=== PATIENT | female | born 1965 | race Caucasian/White ===

== ENCOUNTER → 2017-11-01 | Outpatient (CLI) | payer OTHER | END | disposition home or self-care (01) | LOC: LABWHC1 11:51 | PROVIDERS: ATTEND Family Medicine | DX: J11.1 Influenza due to unidentified influenza virus with other respiratory manifestations (principal) | CPT/HCPCS: 87502 ==

== ENCOUNTER → 2018-10-02 | Outpatient (CLI) | payer OTHER ==
[2018-10-02 09:32] VITALS: BP 132/70; PULSE 60; TEMP 96.8; BMI 29.2
--- NOTE | 2018-10-02 10:37 | P.HPOB ---
History of Present Illness H&P Date: 10/02/18 Chief Complaint: The patient is here for her routine gynecologic exam and mammogram. This is a 53-year-old with an LMP of approximately March 2018. She is here to establish with this office. She states this is been about 5 years since her last pelvic exam. She states her menstrual periods were regular every month until about March of this year. She has not had a menstrual period since about March. She denies any significant hot flashes. She has not had sexual intercourse for about 15 years. She is currently not seeing anybody this time. Review of Systems The patient's weight has been stable over the last year. She denies respiratory , cardiac, or G.I. problems. : occasional urinary leakage. Past Medical History Past Medical History: Hypertension (Currently not requiring medications.) Additional Past Medical History / Comment(s): Varicose veins of the leg. 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 History of Any Multi-Drug Resistant Organisms: None Reported Additional Past Surgical History / Comment(s): wisdom teeth removal. Colonoscopy on 12/01/2015. Additional Past Anesthesia/Blood Transfusion Reaction / Comment(s): never has had general anesthesia Past Psychological History: Anxiety (Mainly around the time of her divorce.) Smoking Status: Former smoker (Quit June 2018.) Past Alcohol Use History: Occasional Additional Past Alcohol Use History / Comment(s): started smoking 1978, quit for 20 years and started smoking again in approximately 2013, quit June 2018. Past Drug Use History: None Reported Additional History: She was recently . She is currently not seeing anybody at this time. 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 - Past Family History Mother Family Medical History: Osteoarthritis (OA) Father Family Medical History: GERD/Reflux Additional Family Medical History / Comment(s): hiatal hernia. Paternal grandmother had diabetes. Medications and Allergies Home Medications Medication Instructions Recorded Confirmed Type Multivitamin [Multivitamins Adult PO DAILY 10/02/18 History Gummies] Allergies Allergy/AdvReac Type Severity Reaction Status Date / Time No Known Allergies Allergy Verified 10/02/18 09:24 Exam Vital Signs Temp Pulse BP 10/02/18 09:28 96.8 F L 60 132/70 Intake and Output 10/01/18 10/02/18 10/02/18 22:59 06:59 14:59 Other: Weight 68.039 kg Height 5'0", weight 150 pounds, JESSICA 29.3. This is a well-developed well-nourished white female who is alert and oriented times 3 in no acute distress. HEENT: Within normal limits. NECK: Supple without mass or thyromegaly. CHEST AND LUNGS: Clear to auscultation. HEART: Regular rate and rhythm. BREASTS: Are without mass or discharge. AXILLARY EXAM: Negative for adenopathy. BACK: Negative for CVA tenderness. ABDOMEN: Soft, nontender, without palpable masses. PELVIC EXAM: Normal external genitalia with mild atrophy. Cervix and vagina appear normal with minimal atrophy. There is no unusual discharge. There is no evidence of prolapse. The uterus is midposition, nongravid size and nontender. There are no palpable adnexal masses or tenderness. RECTAL EXAM: rectovaginal exam is negative for mass or tenderness and is negative for occult blood. EXTREMITIES: Nontender. IMPRESSION: 1. 53-year-old perimenopausal female with six-month history of amenorrhea without significant vasomotor symptoms. 2. Normal gynecologic exam. PLAN: 1. Pap smear was performed. 2. Self breast awareness was discussed with the patient. 3. Screening mammogram will be done today. 4. Osteoporosis prevention was discussed. 5. Patient while keeping menstrual calendar and cause she's having menstrual irregularities or problems. 6. She will return in one year.
--- NOTE | 2018-10-08 09:44 | MM ---
Reason for exam: screening (asymptomatic). Last mammogram was performed 3 years and 10 months ago. Physical Findings: A clinical breast exam by your physician is recommended on an annual basis and results should be correlated with mammographic findings. MG Screening Mammo w CAD Bilateral CC and MLO view(s) were taken. Prior study comparison: November 28, 2014, bilateral MG screening mammo w CAD. August 08, 2011, bilateral digital screening mammo w/CAD. Finding: There is new architectural distortion in the outer quadrant, middle position of the right breast on CC view. New finding since November 28, 2014 and August 08, 2011. ASSESSMENT: Incomplete: need additional imaging evaluation, BI-RAD 0 RECOMMENDATION: Special view mammogram of the right breast. If lesion persists on supplemental views, image directed ultrasound is recommended. [facility] will attempt to contact patient to return for supplemental views and ultrasound if indicated.
== END ==
LOC: WWCWWP 08:56
PROVIDERS: ATTEND Obstetrics & Gynecology
DX: Z12.31 Encounter for screening mammogram for malignant neoplasm of breast (principal)
CPT/HCPCS: 77067

== ENCOUNTER → 2018-10-29 | Outpatient (CLI) | payer OTHER ==
--- NOTE | 2018-10-29 10:52 | MM ---
Reason for exam: additional evaluation requested from abnormal screening. Last mammogram was performed 1 month ago. Physical Findings: Nurse did not find any significant physical abnormalities on exam. MG Work Up Mamm w CAD RT Spot compression CC, spot compression MLO, and LM view(s) were taken of the right breast. Prior study comparison: October 02, 2018, bilateral MG screening mammo w CAD. November 28, 2014, bilateral MG screening mammo w CAD. The breast tissue is heterogeneously dense. This may lower the sensitivity of mammography. Asymmetric density far lateral and anteriorly becomes less defined on spot view and is suspected to represent focal fibroglandular tissue. Precautionary 6 month follow up recommended. These results were verbally communicated with the patient and result sheet given to the patient on 10/29/18. ASSESSMENT: Probably benign, BI-RAD 3 RECOMMENDATION: Follow-up diagnostic mammogram of the right breast in 6 months.
--- NOTE | 2018-10-30 15:12 | P.PN ---
Progress Note - Text Progress Note Date: 10/30/18 Right breast workup done on 10/29/2018 was probably benign. The recommendation was for a follow-up right diagnostic mammogram in 6 months. The results were given to the patient by the radiology department the day of the test. The order slip for a right-sided diagnostic mammogram to be done in April 2019 was mailed to the patient.
== END | disposition home or self-care (01) ==
LOC: RADMAMWWP 09:55
PROVIDERS: ATTEND Obstetrics & Gynecology
DX: R92.8 Other abnormal and inconclusive findings on diagnostic imaging of breast (principal)
CPT/HCPCS: 77065

== ENCOUNTER → 2019-05-24 | Outpatient (CLI) | payer OTHER ==
--- NOTE | 2019-05-24 15:55 | XR ---
EXAMINATION TYPE: XR foot complete bilateral DATE OF EXAM: 05/24/2019 COMPARISON: None HISTORY: Pain TECHNIQUE: Three-view left foot FINDINGS: Plantar arch is preserved. Soft tissues are unremarkable. Tiny calcification may be within the Achilles tendon region near the calcaneus. Acute fracture is not identified. Joint spaces appear preserved. IMPRESSION: 1. No acute osseous abnormality.
== END | disposition home or self-care (01) ==
LOC: RADXRMAIN 15:30
PROVIDERS: ATTEND Emergency Medicine
DX: M79.671 Pain in right foot (principal); M79.672 Pain in left foot

== ENCOUNTER 2020-04-01 18:38 | Observation (INO) | payer MEDICAID ==
[2020-04-01] MEDS ORDERED: SODIUM CHLORIDE 0.9% 1,000 ML IV STA ×2 (18:56)
--- NOTE | 2020-04-01 18:59 | ED ---
Chest Pain HPI - General Chief Complaint: Chest Pain Stated Complaint: Chest Pain Time Seen by Provider: 04/01/20 18:48 Source: patient, RN notes reviewed, old records reviewed Mode of arrival: EMS Limitations: no limitations - History of Present Illness Initial Comments: Patient is a 55-year-old female who presents the emergency department today with chief complaint of onset of substernal chest pain radiation towards her back. She reports that the symptoms lasted for 10 minutes while she was sitting in orthodox. She states that she did feel somewhat nauseous afterwards was diaphoretic at this time. She denies any previous history of coronary artery disease or scarred accenting. She states that she is a former smoker and borderline diabetic and has been noncompliant with her hypertensive medications. She states that she's had some increased acid reflux over the past week. She denies any change in urination or bowel habits. She reports that after the orthodox called EMS her pain started to subside. She rates the emergency department with no complaints of pain now. They did give Patient aspirin prior to arrival. - Related Data Home Medications Medication Instructions Recorded Confirmed Collagen Oral Tab 3 tab PO BID 04/01/20 04/01/20 Garlic 2 tab PO BID 04/01/20 04/01/20 Multivitamins, Thera [Multivitamin 1 tab PO DAILY 04/01/20 04/01/20 (formulary)] Oregano Oil Cap 1 cap PO DAILY 04/01/20 04/01/20 Vitamin C(Unknown Dose) 2 tab PO DAILY 04/01/20 04/01/20 Vitamin D3(Unknown Dose) 1 tab PO DAILY 04/01/20 04/01/20 Zinc Chewable Tab(Unknown Dose) 3 tab PO DAILY 04/01/20 04/01/20 Allergies Allergy/AdvReac Type Severity Reaction Status Date / Time No Known Allergies Allergy Verified 04/01/20 19:49 Review of Systems ROS Statement: Those systems with pertinent positive or pertinent negative responses have been documented in the HPI. ROS Other: All systems not noted in ROS Statement are negative. EKG Findings - EKG Comments: EKG Findings:: EKG performed at 5 shows sinus bradycardia, otherwise normal EKG. Ventricular rate of 59 bpm. Verbal 158 ms. QRS ration 72 ms. QT QTc is 4:30/425 ms. Past Medical History Past Medical History: Hypertension Additional Past Medical History / Comment(s): Varicose veins of the leg. 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 History of Any Multi-Drug Resistant Organisms: None Reported Additional Past Surgical History / Comment(s): wisdom teeth removal. Colonoscopy on 12/01/2015. Additional Past Anesthesia/Blood Transfusion Reaction / Comment(s): never has had general anesthesia Past Psychological History: Anxiety Smoking Status: Former smoker Past Alcohol Use History: Occasional Past Drug Use History: None Reported - Past Family History Mother Family Medical History: Osteoarthritis (OA) Father Family Medical History: GERD/Reflux Additional Family Medical History / Comment(s): hiatal hernia. Paternal grandmother had diabetes. General Exam - General Exam Comments Initial Comments: Anna 55-year-old female. No significant distress. Limitations: no limitations General appearance: alert, in no apparent distress Head exam: Present: atraumatic, normocephalic, normal inspection Eye exam: Present: normal appearance, PERRL, EOMI. Absent: scleral icterus, conjunctival injection, periorbital swelling ENT exam: Present: normal exam, mucous membranes moist Neck exam: Present: normal inspection. Absent: tenderness, meningismus, lymphadenopathy Respiratory exam: Present: normal lung sounds bilaterally. Absent: respiratory distress, wheezes, rales, rhonchi, stridor Cardiovascular Exam: Present: regular rate, normal rhythm, normal heart sounds. Absent: systolic murmur, diastolic murmur, rubs, gallop, clicks GI/Abdominal exam: Present: soft, normal bowel sounds. Absent: distended, tenderness, guarding, rebound, rigid Back exam: Present: normal inspection Neurological exam: Present: alert, oriented X3, CN II-XII intact Psychiatric exam: Present: normal affect, normal mood Course Vital Signs 04/01/20 04/01/20 18:44 19:33 Temperature 98.2 F Pulse Rate 96 57 L Respiratory 18 18 Rate Blood Pressure 159/102 133/93 O2 Sat by Pulse 96 97 Oximetry Chest Pain MDM - [facility] Patient is a pleasant 55-year-old female comes in with sudden onset of substernal chest pain or discharge. Patient reports is also diaphoretic when this occurred. Patient's initial EKG was negative. She is given aspirin by EMS. She reports her having her chest pain seems to diminish. Patient's initial troponin is negative. She does have history former smoker and comorbid is of hypertension and prediabetes. Chest x-ray is negative for any acute cardio pulmonary process. She'll be admitted at this time. Disposition Clinical Impression: Chest pain Disposition: ADMITTED IP TO THIS HOSP Condition: Stable Is patient prescribed a controlled substance at d/c from ED?: No Referrals: Kenyon Jung MD [Primary Care Provider] - 1-2 days Time of Disposition: 20:03
[2020-04-01 19:12] LABS: Basophils % (A) 1 %; Eosinophils # (A) 0.1 k/uL (0-0.7); Eosinophils % (A) 2 %; HCT 41.9 % (34.0-46.0); HGB 14.3 gm/dL (11.4-16.0); Lymphocytes # (A) 2.3 k/uL (1.0-4.8); Lymphocytes % (A) 39 %; Mean Platelet Volume 7.5; Monocytes # (A) 0.3 k/uL (0-1.0); Monocytes % (A) 6 %; Neutrophils % (A) 51 %; Platelet Count 239 k/uL (150-450); RBC 4.61 m/uL (3.80-5.40); RDW 13.2 % (11.5-15.5); WBC 5.9 k/uL (3.8-10.6)
--- NOTE | 2020-04-01 19:16 | XR ---
EXAMINATION TYPE: XR chest 2V DATE OF EXAM: 04/01/2020 COMPARISON: NONE HISTORY: Shortness of breath TECHNIQUE: Frontal and lateral views of the chest are obtained. FINDINGS: Scattered senescent parenchymal changes noted. No evidence for infiltrate. No evidence for atelectasis. Heart size is stable. Mediastinal structures are stable and grossly unremarkable. No evidence for hilar prominence. Degenerative changes dorsal spine. IMPRESSION: 1. No evidence for acute pulmonary disease.
[2020-04-01 19:17] LABS: INR 0.9 (<1.2); Partial Thromboplastin Time 23.7 sec (22.0-30.0); Prothrombin Time 9.6 sec (9.0-12.0)
[2020-04-01 19:21] LABS: ALT 64 U/L (4-34); AST 42 U/L (14-36); African American GFR (CKD) >90 (>60 ml/min/1.73 sqM); Albumin 4.6 g/dL (3.5-5.0); Alkaline Phosphatase 107 U/L (38-126); Amylase 57 U/L (30-110); Anion Gap 8 mmol/L; Blood Urea Nitrogen 21 mg/dL (7-17); Calcium 9.5 mg/dL (8.4-10.2); Carbon Dioxide 21 mmol/L (22-30); Chloride 109 mmol/L (98-107); Glucose 108 mg/dL (74-99); Magnesium 2.3 mg/dL (1.6-2.3); Non-African American GFR(CKD) 89 (>60 ml/min/1.73 sqM); Potassium 4.3 mmol/L (3.5-5.1); Sodium 138 mmol/L (137-145); Total Bilirubin 0.3 mg/dL (0.2-1.3); Total Protein 7.9 g/dL (6.3-8.2)
[2020-04-01] MEDS ORDERED: NITROGLYCERIN SL TABS 0.4 MG TAB SUBLINGUAL PRN (20:03)
[2020-04-02 08:59] LABS: Triglycerides 145 mg/dL (<150)
[2020-04-02] MEDS ORDERED: ASPIRIN 325 MG TAB PO SCH (09:00)
[2020-04-02 09:01] VITALS: BP 142/87; TEMP 97.7
[2020-04-02 09:06] LABS: Cholesterol 244 mg/dL (<200); HDL Cholesterol 63 mg/dL (40-60); LDL Cholesterol,Calculated 152 mg/dL (0-99)
--- NOTE | 2020-04-02 12:00 | ECHOF ---
Referral Reason:chest pain MEASUREMENTS -------- HEIGHT: 154.9 cm WEIGHT: 73.5 kg BP: IVSd: 1.2 cm (0.6 - 1.1) LVIDd: 3.2 cm (3.9 - 5.3) LVPWd: 1.1 cm (0.6 - 1.1) IVSs: 1.6 cm LVIDs: 1.8 cm LVPWs: 2.0 cm LAESV Index (A-L): 26.00 ml/m Ao Diam: 2.6 cm (2.0 - 3.7) AV Cusp: 1.9 cm (1.5 - 2.6) LA Diam: 2.7 cm (2.7 - 3.8) MV EXCURSION: 10.412 mm (> 18.000) MV EF SLOPE: 118 mm/s (70 - 150) EPSS: 1.1 cm MV E Ryland: 1.09 m/s MV DecT: 224 ms MV A Ryland: 0.68 m/s MV E/A Ratio: 1.62 RAP: 5.00 mmHg RVSP: 11.77 mmHg FINDINGS -------- Sinus rhythm. This was a technically good study. The left ventricular size is normal. There is mild concentric left ventricular hypertrophy. Overa ll left ventricular systolic function is normal with, an EF between 55 - 60 %. Normal LAP Grade 1 D iastolic Dysfunction. The right ventricle is normal in size. The left atrial size is normal. Normal LA size by volume 22+/-6 ml/m2. The right atrial size is normal. Interatrial and interventricular septum intact. The aortic valve is trileaflet and appears structurally normal. The mitral valve is normal. There is trace mitral regurgitation. The tricuspid valve appears structurally normal. Trace tricuspid regurgitation present. Right silvia tricular systolic pressure is normal at < 35 mmHg. There is no pulmonic regurgitation present. The aortic root size is normal. Normal inferior vena cava with normal inspiratory collapse consistent with estimated right atrial pre ssure of 5 mmHg. There is no pericardial effusion. CONCLUSIONS -------- 1. Sinus rhythm. 2. This was a technically good study. 3. The left ventricular size is normal. 4. There is mild concentric left ventricular hypertrophy. 5. Overall left ventricular systolic function is normal with, an EF between 55 - 60 %. 6. Normal LAP Grade 1 Diastolic Dysfunction. 7. The right ventricle is normal in size. 8. The left atrial size is normal. 9. Normal LA size by volume 22+/-6 ml/m2. 10. The right atrial size is normal. 11. Interatrial and interventricular septum intact. 12. The aortic valve is trileaflet and appears structurally normal. 13. The mitral valve is normal. 14. There is trace mitral regurgitation. 15. The tricuspid valve appears structurally normal. 16. Trace tricuspid regurgitation present. 17. Right ventricular systolic pressure is normal at < 35 mmHg. 18. There is no pulmonic regurgitation present. 19. The aortic root size is normal. 20. Normal inferior vena cava with normal inspiratory collapse consistent with estimated right atrial pressure of 5 mmHg. 21. There is no pericardial effusion. BENEFITS PROCESSOR: Katelynn Pires RDCS
--- NOTE | 2020-04-02 12:31 | CONS ---
CONSULTATION CHIEF COMPLAINT: Chest pain. Poonam is a 55-year-old lady with no significant past medical history who presented to hospital complaining of chest pain. It is sharp, mild intensity, precordial without definite radiation to neck, arm or back. Unassociated with diaphoresis. There is no history of leg edema, PND, or orthopnea. At the time of my evaluation this morning, she appears comfortable at rest and is free of chest pain. EKG does not reveal any ischemic changes. Three sets of cardiac enzymes are negative. Lipid profile shows that the LDL cholesterol is 150. Her ferreira virus is negative. PAST MEDICAL HISTORY: Significant for questionable history of hypertension. There is no history of dyslipidemia, diabetes. MEDICATIONS: At home are none. ALLERGIES: None. FAMILY HISTORY: Significant for premature coronary artery disease. SOCIAL HISTORY: Denies current smoking. She drinks 2 glasses of wine every day. REVIEW OF SYSTEMS: HEENT: Unremarkable. CARDIAC: As described above. RESPIRATORY: Negative. GI: Negative. ALLERGY/IMMUNOLOGY: Negative. SKIN: Negative. MUSCULOSKELETAL: Negative. ENDOCRINE: Negative. DERM: Negative. CONSTITUTIONAL: Negative. ONCOLOGICAL: Negative. LIFE SCIENCES INSTRUCTOR: Negative. PHYSICAL EXAM: Comfortable at rest vital signs are stable. There is no jugular venous distention. Carotid upstroke is normal. There is no bruit. Chest exam reveals good air entry bilaterally. Heart exam reveals first and second heart sounds. No gallop. No murmur. No rub. Abdomen is soft, nontender. Exam of extremities did not reveal any edema. Peripheral pulses are felt. LIFE SCIENCES INSTRUCTOR exam did not reveal focal neurological deficits. ASSESSMENT: 1. Precordial chest pain. PLAN: Patient's chest discomfort is sharp, atypical. I am going to obtain a stress echo on her to rule out ischemia and if there is no ischemia, we will discharge her home. If it is abnormal, will perform cardiac catheterization on her. MMODL / IJN: [id number] /
[2020-04-02 12:51] VITALS: PULSE 55; RESP 16
--- NOTE | 2020-04-02 14:32 | ECHOS ---
STRESS ECHOCARDIOGRAM LUMASON: Vial INDICATIONS: Chest pain. MEDICATIONS: BASELINE HEART RATE: 53 BASELINE BLOOD PRESSURE: 146/90 MAXIMUM HEART RATE: 124 MAXIMUM BLOOD PRESSURE: 184/82 85% MPHR: 139 100% MPHR: 163 METS: 4 MAXIMUM STAGE REACHED: TOTAL EXERCISE TIME: 9:30 CLINICAL INFORMATION: Baseline EKG revealed normal sinus rhythm without significant ST-T changes. Patient walked on standard Alvaro protocol for 9 minutes 30 seconds, achieved a maximal heart rate of 142 beats per minute, developed fatigue and shortness of breath. Stress test was stopped because of fatigue and shortness of breath. The heart rate came down somewhat quickly. Patient did not have angina or arrhythmia. EKG did not reveal any ST-segment changes to indicate ischemia. There was a lot of baseline artifact. By EKG criteria, this is a negative stress test with good exercise capacity. Baseline echo images revealed normal wall motion and wall thickening of all segments. At peak exercise by the time images were obtained, heart rate was lower, but there is no evidence to suggest any ischemia. There was good augmentation of left ventricular wall motion and wall thickening of all segments suggesting that there is no evidence of stress-induced ischemia on this study. FINAL IMPRESSION: 1. Fair to good exercise capacity with a negative stress test by EKG criteria. 2. Normal stress echocardiogram. Patient's heart rate came down somewhat quickly after the exercise, but there is no evidence to suggest any ischemia. Good augmentation of left ventricle contractility was noted. MMNELLIEL / CHUNGN: [id number] /
--- NOTE | 2020-04-02 17:14 | P.HPIM ---
History of Present Illness H&P Date: 04/02/20 Chief Complaint: Chest pain, shortness of breath History and Physical and Discharge Summary This is a 55-year-old pleasant female with history of hypertension, anxiety, former nicotine dependence, borderline diabetic and multiple other medical issues. Transported to the ER via EMS with substernal chest pain radiating to back accompanied by shortness of breath, nausea , diaphoresis ,while sitting in zoroastrian. Reports she changed jobs, lost her insurance and therefore had quit taking her blood pressure medications for some time. Reports she drinks 2 glasses of wine nightly and has gained a few pounds and is menopausal. Also complains of increased acid reflux over the last week, especially at night. Troponins negative 3. EKG reported sinus bradycardia /sinus rhythm. Blood pressure on arrival 159/102 , heart rate 96 , respiratory rate 18 maintaining O2 sats in the 90s on room air. Afebrile, normal WBC. Denies any syncope. Denies any cough, congestion or fevers or chills. Coronavirus not detected. Hematology unremarkable. D-dimer within normal limits. INR 0.9. BUN 21, cr eatinine 0.75, glucose 108, AST, ALT mildly elevated. Cholesterol 244, LDL 152, HDL 63. Chest x-ray nonacute. Echo cardiogram reporting normal LV function, EF 55-60%. Cardiology consulted. Review of Systems ROS Statement: Those systems with pertinent positive or pertinent negative responses have been documented in the HPI. ROS Other: All systems not noted in ROS Statement are negative. Past Medical History Past Medical History: Hypertension Additional Past Medical History / Comment(s): Varicose veins of the leg. 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 History of Any Multi-Drug Resistant Organisms: None Reported Additional Past Surgical History / Comment(s): wisdom teeth removal. Colonoscopy on 12/01/2015. Additional Past Anesthesia/Blood Transfusion Reaction / Comment(s): never has had general anesthesia Smoking Status: Former smoker - Past Family History Mother Family Medical History: Osteoarthritis (OA) Father Family Medical History: GERD/Reflux Additional Family Medical History / Comment(s): hiatal hernia. Paternal grandm other had diabetes. Medications and Allergies Home Medications Medication Instructions Recorded Confirmed Type Collagen Oral Tab 3 tab PO BID 04/01/20 04/01/20 History Garlic 2 tab PO BID 04/01/20 04/01/20 History Multivitamins, Thera [Multivitamin 1 tab PO DAILY 04/01/20 04/01/20 History (formulary)] Oregano Oil Cap 1 cap PO DAILY 04/01/20 04/01/20 History Vitamin C(Unknown Dose) 2 tab PO DAILY 04/01/20 04/01/20 History Vitamin D3(Unknown Dose) 1 tab PO DAILY 04/01/20 04/01/20 History Zinc Chewable Tab(Unknown Dose) 3 tab PO DAILY 04/01/20 04/01/20 History Albuterol Sulfate [Ventolin HFA] 2 puff INHALATION Q4H PRN #1 04/02/20 Rx inhaler Atenolol [Tenormin] 12.5 mg PO BID #60 dose 04/02/20 Rx Atorvastatin Calcium [Lipitor] 10 mg PO HS #30 tab 04/02/20 Rx Allergies Allergy/AdvReac Type Severity Reaction Status Date / Time No Known Allergies Allergy Verified 04/01/20 19:49 Physical Exam Vitals: Vital Signs Temp Pulse Pulse Resp BP BP Pulse Ox 04/02/20 12:00 97.7 F 55 L 16 142/87 97 04/02/20 08:00 97.7 F 58 L 18 142/87 99 04/02/20 04:00 98.2 F 65 18 124/65 98 04/01/20 22:53 62 18 142/78 97 04/01/20 20:54 98.1 F 58 L 18 157/95 98 04/01/20 20:32 98 F 61 18 140/83 98 04/01/20 19:33 57 L 18 133/93 97 04/01/20 18:44 98.2 F 96 18 159/102 96 Intake and Output 04/02/20 04/02/20 04/02/20 06:59 14:59 22:59 Other: # Voids 1 1 Weight 73.9 kg 73.9 kg PHYSICAL EXAM: VITAL SIGNS: As above GENERAL: Sitting up in bed, no acute distress HEENT: Conjunctivae normal. eyes normal. NECK: No JVD. No thyroid enlargement. No LNs CARDIOVASCULAR: S1, S2 regular.. No murmur RESPIRATION: Breath sounds diminished in the bases. No rhonchi or crackles. No bronchial breathing. ABDOMEN: Soft, nontender . No guarding. no masses palpable. No ascites, No hepatosplenomegaly.Bowel sounds heard. LEGS: No edema. no swelling PSYCHIATRY: Alert and oriented X3, mood and affect normal. NERVOUS SYSTEM: Cranial N 2-12 grossly normal. Moves all 4 limbs. No focal deficits. Strength and sensation grossly intact.. Skin:no rash Lymphatic system. No LN neck axilla. Results CBC & Chem 7: 04/01/20 18:55 04/01/20 18:55 Labs: Abnormal Lab Results - Last 24 Hours (Table) 04/01/20 04/02/20 Range/Units 18:55 07:06 Chloride 109 H (98-107) mmol/L Carbon Dioxide 21 L (22-30) mmol/L BUN 21 H (7-17) mg/dL Glucose 108 H (74-99) mg/dL AST 42 H (14-36) U/L ALT 64 H (4-34) U/L Cholesterol 244 H (<200) mg/dL LDL Cholesterol, Calc 152 H (0-99) mg/dL HDL Cholesterol 63 H (40-60) mg/dL Thrombosis Risk Factor Assmnt - Choose All That Apply Any of the Below Risk Factors Present?: Yes Each Factor Represents 1 point: Age 41-60 years, Obesity (BMI >25) Thrombosis Risk Factor Assessment Total Risk Factor Score: 2 Thrombosis Risk Factor Assessment Level: Low Risk Assessment and Plan Assessment: Acute chest pain, ruling out acute coronary syndrome Hypertension. Patient had quit taking her antihypertensives Mild dehydration Gastroesophageal reflux disease Mildly elevated LFTs, possibly gallbladder disease with further workup outpatient Hypercholesterolemia Hyperlipidemia Obesity, BMI 30.8 Menopausal Former nicotine dependence Alcohol use Coronavirus not detected Plan: Continue on current medication regime ,monitoring and symptomatic treatment. Evaluated by cardiology, scheduled for stress echo. TSH/free T4, hemoglobin A1c ordered. Patient will be discharged home in a stable condition with guarded prognosis, pending stress test, final DC recommendations and clearance from cardiology. Further workup of gallbladder outpatient.Statin, atenolol, Prilosec, Ventolin HFA at DC. Decrease wine consumption reinforced. The impression and plan of care has been dictated as directed. : I performed a history and examination of this patient, discussed the same with the dictator. I agree with the dictator's note ,documented as a scribe. Any additional findings or plans will be noted.
[2020-04-03] MEDS ORDERED: ZINC SULFATE 220 MG CAP PO SCH (09:00)
[2020-04-03] MEDS ORDERED: MULTIVITAMINS, THERA 1 EACH TAB PO SCH (09:00)
== END 2020-04-02 16:42 | disposition home or self-care (01) ==
LOC: EC 18:38 → 3SCARD 20:13
PROVIDERS: ADMIT Family Medicine; ATTEND Family Medicine
DX: R07.89 Other chest pain (principal); R11.0 Nausea; R61 Generalized hyperhidrosis; R07.2 Precordial pain; R06.02 Shortness of breath; I10 Essential (primary) hypertension; T46.5X6A Underdosing of other antihypertensive drugs, initial encounter; Z91.120 Patient's intentional underdosing of medication regimen due to financial hardship; E86.0 Dehydration; K21.9 Gastro-esophageal reflux disease without esophagitis; R79.89 Other specified abnormal findings of blood chemistry; E78.00 Pure hypercholesterolemia, unspecified; E78.5 Hyperlipidemia, unspecified; Z78.0 Asymptomatic menopausal state; E66.9 Obesity, unspecified; Z68.30 Body mass index [BMI] 30.0-30.9, adult; R73.03 Prediabetes; F41.9 Anxiety disorder, unspecified; R74.0 Nonspecific elevation of levels of transaminase and lactic acid dehydrogenase [LDH]; Z79.899 Other long term (current) drug therapy; Z87.891 Personal history of nicotine dependence; I83.90 Asymptomatic varicose veins of unspecified lower extremity; Z91.19 Patient's noncompliance with other medical treatment and regimen; Z20.828 Contact with and (suspected) exposure to other viral communicable diseases; Z82.61 Family history of arthritis; Z83.3 Family history of diabetes mellitus; Z83.79 Family history of other diseases of the digestive system; Z82.49 Family history of ischemic heart disease and other diseases of the circulatory system
CPT/HCPCS: 93005 ×2; 96360; 99285; 36415; 93306; 93351; 85379; 80061; 80053; 82150; 83690; 83735; 84484 ×2; 85025; 85610; 85730; 87635; 71046; G0378 ×2

== ENCOUNTER → 2020-08-18 | Outpatient (CLI) | payer MEDICAID ==
[2020-08-18 14:09] VITALS: BP 133/66; PULSE 50; RESP 16; TEMP 98.2
--- NOTE | 2020-08-18 15:19 | P.HPOB ---
History of Present Illness H&P Date: 08/18/20 Chief Complaint: The patient is here for her routine gynecologic exam. This is a 55-year-old with an LMP of early 2018. She has gone more than one year without any vaginal bleeding. She denies any significant hot flashes but does notice some irritability and had gained weight which she believes may have been related to the menopausal change. She has lost much of the weight with diet and exercise. She is without gynecologic complaints. Review of Systems She had gained about 12 pounds which she attributed to the menopausal change. With diet, exercise and Adipex she has lost about 14 pounds. She denies respiratory, cardiac, or GI problems. Past Medical History Past Medical History: Hypertension, Sleep Apnea/CPAP/BIPAP Additional Past Medical History / Comment(s): Varicose veins of the leg. 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 History of Any Multi-Drug Resistant Organisms: None Reported Additional Past Surgical History / Comment(s): wisdom teeth removal. Colonoscopy on 12/01/2015. Additional Past Anesthesia/Blood Transfusion Reaction / Comment(s): never has had general anesthesia Past Psychological History: Anxiety Smoking Status: Former smoker Past Alcohol Use History: Daily (About 8 ounces of wine per day.) Additional Past Alcohol Use History / Comment(s): started smoking 1978, quit for 20 years and started smoking again in approximately 2013, quit June 2018. Past Drug Use History: None Reported Additional History: She is . She has been with her boyfriend since 2019 and does not live with him. She has not been sexually active with him. She works in home care. She has taken up pickleball. - Past Family History Mother Family Medical History: Osteoarthritis (OA) Father Family Medical History: GERD/Reflux Additional Family Medical History / Comment(s): hiatal hernia. Paternal grandm other had diabetes. Medications and Allergies Home Medications Medication Instructions Recorded Confirmed Type Collagen Oral Tab 3 tab PO BID 04/01/20 08/18/20 History Vitamin C(Unknown Dose) 2 tab PO DAILY 04/01/20 08/18/20 History Zinc Chewable Tab(Unknown Dose) 3 tab PO DAILY 04/01/20 08/18/20 History Nebivolol HCl [Bystolic] 5 mg PO DAILY 08/18/20 08/18/20 History Phentermine HCl [Adipex-P] 37.5 mg PO [id number] 08/18/20 08/18/20 History Allergies Allergy/AdvReac Type Severity Reaction Status Date / Time No Known Allergies Allergy Verified 04/01/20 19:49 Exam Vital Signs Temp Pulse Resp BP Pulse Ox 08/18/20 14:01 98.2 F 50 L 16 133/66 96 Intake and Output 08/18/20 08/18/20 08/18/20 06:59 14:59 22:59 Other: Weight 67.132 kg Height 5 feet 1 inch, weight 148 pounds, BMI 28.0. This is a well-developed well-nourished white female who is alert and oriented times 3 in no acute distress. HEENT: Within normal limits. NECK: Supple without mass or thyromegaly. CHEST AND LUNGS: Clear to auscultation. HEART: Regular rate and rhythm. BREASTS: Are without mass or discharge. AXILLARY EXAM: Negative for adenopathy. BACK: Negative for CVA tenderness. ABDOMEN: Soft, nontender, without palpable masses. PELVIC EXAM: Normal external genitalia with minimal atrophy. Cervix and vagina appear normal is minimal atrophy. There is no unusual discharge. There is no evidence of prolapse. The uterus is midposition, nongravid size and nontender. There are no palpable adnexal masses or tenderness. RECTAL EXAM: Rectovaginal exam is negative for mass or tenderness and is negative for occult blood. EXTREMITIES: Nontender. IMPRESSION: 1. 55-year-old menopausal female with normal gynecologic exam. 2. Previous abnormal mammogram and she did not follow-up with the right breast mammogram as recommended. PLAN: 1. Pap smear was deferred since her last one was normal less than 2 years ago on 10/02/2018. 2. Self breast awareness was discussed with the patient. 3. Bilateral diagnostic mammogram is due and the order slip was given to the patient for this. 4. Osteoporosis prevention was discussed. I have stressed the importance of adequate calcium, vitamin D and regular exercise. Recommended amounts of calcium and vitamin D were also discussed. 5. Weight control was discussed. I have stressed the importance of good nutrition, regular exercise and adequate fiber. It will be important that she could have its even after stopping the Adipex. 6. She was advised to return in one year for her annual well woman exam.
== END | disposition home or self-care (01) ==
LOC: WWCWWP 13:52
PROVIDERS: ATTEND Obstetrics & Gynecology
DX: Z53.9 Procedure and treatment not carried out, unspecified reason (principal)

== ENCOUNTER → 2020-09-07 | Outpatient (CLI) | payer MEDICAID ==
--- NOTE | 2020-09-08 11:46 | MM ---
Reason for exam: additional evaluation requested from prior study. Last mammogram was performed 1 year and 10 months ago. History: Patient is postmenopausal. Physical Findings: Nurse did not find any significant physical abnormalities on exam. MG 3D Diag Mammo W/Cad JANES Bilateral CC and MLO view(s) were taken. Prior study comparison: October 29, 2018, right breast MG work up mamm w CAD RT. October 02, 2018, bilateral MG screening mammo w CAD. The breast tissue is heterogeneously dense. This may lower the sensitivity of mammography. 5mm circumscribed isodense nodularity subareolar left MLO view likely seen now because of 3D imaging. 6 month follow up recommended. These results were verbally communicated with the patient and result sheet given to the patient on 09/07/20. ASSESSMENT: Probably benign, BI-RAD 3 RECOMMENDATION: Follow-up diagnostic mammogram of the left breast in 6 months.
== END | disposition home or self-care (01) ==
LOC: RADMAMWWP 13:06
PROVIDERS: ATTEND Obstetrics & Gynecology
DX: R92.8 Other abnormal and inconclusive findings on diagnostic imaging of breast (principal)
CPT/HCPCS: 77062; 77066

== ENCOUNTER → 2022-04-26 | Outpatient (CLI) | payer MEDICAID ==
[2022-04-26 11:16] VITALS: BP 125/78; PULSE 60; RESP 17; TEMP 98.6
--- NOTE | 2022-04-26 12:03 | P.HPOB ---
History of Present Illness H&P Date: 04/26/22 Chief Complaint: The patient is here for her routine gynecologic exam and ma mmogram. This is a 57-year-old with an LMP of 2019. She is without gynecologic complaints and denies any postmenopausal bleeding. Her last screening mammogram on 08/18/2020 did require a left breast workup which was probably benign. A 6 month diagnostic left mammogram was recommended and the patient did not have this done. Review of Systems The patient has lost 5 pounds over the last year. The weight loss was intentional with dietary changes. She denies respiratory, cardiac, or G.I. problems. Past Medical History Past Medical History: Hyperlipidemia, Hypertension, Sleep Apnea/CPAP/BIPAP Additional Past Medical History / Comment(s): Varicose veins of the leg. 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 History of Any Multi-Drug Resistant Organisms: None Reported Additional Past Surgical History / Comment(s): wisdom teeth removal. Colonoscopy on 12/01/2015. Additional Past Anesthesia/Blood Transfusion Reaction / Comment(s): never has had general anesthesia Past Psychological History: Anxiety Smoking Status: Current some day smoker (About 1 pack of cigarettes per month.) Past Alcohol Use History: Daily Additional Past Alcohol Use History / Comment(s): started smoking 1978, quit for 20 years and started smoking again in approximately 2013, quit June 2018, but started again infrequently. Past Drug Use History: None Reported Additional History: She is . She has been with her boyfriend since 2019 but does not live with him and is not sexually active with him. She has moved back in with her parents because of her mother's health issues. - Past Family History Mother Family Medical History: Osteoarthritis (OA) Additional Family Medical History / Comment(s): Brain tumor. Father Family Medical History: GERD/Reflux Additional Family Medical History / Comment(s): hiatal hernia. Paternal grandmother had diabetes. Medications and Allergies Home Medications Medication Instructions Recorded Confirmed Type Collagen Oral Tab 3 tab PO BID 04/01/20 04/26/22 History Vitamin C(Unknown Dose) 2 tab PO DAILY 04/01/20 04/26/22 History Nebivolol HCl [Bystolic] 5 mg PO DAILY 08/18/20 04/26/22 History Atorvastatin [Lipitor] 10 mg PO DAILY 04/26/22 04/26/22 History Allergies Allergy/AdvReac Type Severity Reaction Status Date / Time No Known Allergies Allergy Verified 04/26/22 11:10 Exam Vital Signs Temp Pulse Resp BP Pulse Ox 04/26/22 11:13 98.6 F 60 17 125/78 96 Intake and Output 04/25/22 04/26/22 04/26/22 22:59 06:59 14:59 Other: Weight 64.864 kg Height 5 foot 1 inch, weight 143 pounds, BMI 27.0. This is a well-developed well-nourished white female who is alert and oriented times 3 in no acute distress. HEENT: Within normal limits. NECK: Supple without mass or thyromegaly. CHEST AND LUNGS: Clear to auscultation. HEART: Regular rate and rhythm. BREASTS: Are without mass or discharge. AXILLARY EXAM: Negative for adenopathy. BACK: Negative for CVA tenderness. ABDOMEN: Soft, nontender, without palpable masses. PELVIC EXAM: Normal external genitalia with mild atrophy. Cervix and vagina appear normal mild atrophy. There is no unusual discharge. There is no evidence of prolapse. The uterus is midposition, nongravid size and nontender. There are no palpable adnexal masses or tenderness. RECTAL EXAM: Rectovaginal exam is negative for mass or tenderness and is negative for occult blood. EXTREMITIES: Nontender. IMPRESSION: 1. 57-year-old menopausal female with normal gynecologic exam. 2. Previous abnormal screening mammogram which did require a left breast workup. 6 month follow-up was not done by the patient. PLAN: 1. Pap smear cotest was performed. 2. Self breast awareness was discussed with the patient. We have also discussed symptoms associated with inflammatory breast cancer. 3. Bilateral diagnostic mammogram will be done today. 4. Osteoporosis prevention was discussed. I have stressed the importance of adequate calcium, vitamin D and regular exercise. Recommended amounts of calcium and vitamin D were also discussed. 5. She has completed her Covid vaccination series and did receive a booster. 6. She was advised to return in one year for her annual well woman exam.
--- NOTE | 2022-04-26 13:31 | MM ---
Reason for Exam: Follow-up at short interval from prior study. Last mammogram was performed 1 year(s) and 8 month(s) ago. Patient History: Menarche at age 10. First Full-Term at age 26. Postmenopausal. Risk Values: Karen 5 year model risk: 1.5%. NCI Lifetime model risk: 8.3%. Prior Study Comparison: 03/16/2006 Screening Mammogram, [facility]. 08/08/2011 Bilateral Screening Mammogram, [facility]. 11/28/2014 Bilateral Screening Mammogram, [facility]. 10/02/2018 Bilateral Screening Mammogram, [facility]. 10/29/2018 Right Diagnostic Mammogram, [facility]. 09/07/2020 Bilateral Diagnostic Mammogram, [facility]. Tissue Density: The breast tissue is heterogeneously dense. This may lower the sensitivity of mammography. Findings: Analyzed By CAD. The previous subareolar nodularity on the left MLO view has not persistent. No significant change from prior exams. Overall Assessment: Negative, BI-RAD 1 Management: Screening Mammogram of both breasts in 1 year. 1. Patient should continue monthly self breast exams. 2. This exam should not preclude additional follow-up of suspicious palpable abnormalities. Results were given to the patient verbally at the time of exam. Electronically signed and approved by: Coty Avelar M.D. Radiologist
== END | disposition home or self-care (01) ==
LOC: WWCWWP 10:46
PROVIDERS: ATTEND Obstetrics & Gynecology
DX: R92.8 Other abnormal and inconclusive findings on diagnostic imaging of breast (principal)
CPT/HCPCS: 77062; 77066

== ENCOUNTER 2024-02-01 09:28 | Emergency (ER) | payer MEDICAID ==
[2024-02-01 09:44] VITALS: TEMP 98.7
--- NOTE | 2024-02-01 09:49 | ED ---
General Adult HPI - General Chief complaint: Chest Pain Stated complaint: chest pain Time Seen by Provider: 02/01/24 09:32 Source: patient Mode of arrival: ambulatory Limitations: no limitations - History of Present Illness Initial comments: Dictation was produced using [employer] dictation software. please excuse any grammatical, word or spelling errors. Chief Complaint: 58-year-old female no significant comorbidities presents to the ER for chest pain History of Present Illness: Patient 58-year-old female she has past medical history of high cholesterol controlled with oral medications. For last couple hours she has developed a pressure in her chest that radiated to her left jaw. She did report some diaphoresis and nausea. She has no history of cardiac disease. No family history of heart attacks. 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 States that her symptoms mostly resolved except for mild pressure in her chest. The ROS documented in this emergency department record has been reviewed and confirmed by me. Those systems with pertinent positive or negative responses have been documented in the HPI. All other systems are other negative and/or noncontributory. - Related Data Home Medications Medication Instructions Recorded Confirmed Nebivolol HCl [Bystolic] 5 mg PO DAILY 08/18/20 04/26/22 Atorvastatin [Lipitor] 10 mg PO DAILY 04/26/22 04/26/22 Allergies Allergy/AdvReac Type Severity Reaction Status Date / Time No Known Allergies Allergy Verified 02/01/24 12:00 Review of Systems ROS Statement: Those systems with pertinent positive or pertinent negative responses have been documented in the HPI. ROS Other: All systems not noted in ROS Statement are negative. Past Medical History Past Medical History: Hyperlipidemia, Hypertension, Sleep Apnea/CPAP/BIPAP Additional Past Medical History / Comment(s): Varicose veins of the leg. 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 History of Any Multi-Drug Resistant Organisms: None Reported Additional Past Surgical History / Comment(s): wisdom teeth removal. Colonoscopy on 12/01/2015. Additional Past Anesthesia/Blood Transfusion Reaction / Comment(s): never has had general anesthesia Past Psychological History: Anxiety Smoking Status: Current some day smoker Past Alcohol Use History: Daily Past Drug Use History: None Reported - Past Family History Mother Family Medical History: Osteoarthritis (OA) Additional Family Medical History / Comment(s): Brain tumor. Father Family Medical History: GERD/Reflux Additional Family Medical History / Comment(s): hiatal hernia. Paternal grandmother had diabetes. General Exam - General Exam Comments Initial Comments: PHYSICAL EXAM: General Impression: Alert and oriented x3, not in acute distress HEENT: Normocephalic atraumatic, extra-ocular movements intact, pupils equal and reactive to light bilaterally, mucous membranes moist. Cardiovascular: Heart regular rate and rhythm Chest: Able to complete full sentences, no retractions, no tachypnea Abdomen: abdomen soft, non-tender, non-distended, no organomegaly Musculoskeletal: Pulses present and equal in all extremities, no peripheral edema Motor: no focal deficits noted Neurological: CN II-XII grossly intact, no focal motor or sensory deficits noted Skin: Intact with no visualized rashes Psych: Normal affect and mood Limitations: no limitations Course Vital Signs 02/01/24 02/01/24 09:29 10:08 Temperature 98.7 F Pulse Rate 59 L 49 L Respiratory 16 18 Rate Blood Pressure 181/92 147/88 O2 Sat by Pulse 98 98 Oximetry EKG Findings - EKG Comments: EKG Findings:: My EKG interpretation: Ventricular rate 49, sinus bradycardia,. 182, QRS 76, QTc 417. No MA prolongation, no QTC prolongation, no ST or T-wave changes noted. . Overall, this EKG is unremarkable Medical Decision Making - Medical Decision Making Was pt. sent in by a medical professional or institution (, PA, SYSTEMS SUPPORT SPECIALIST, urgent care, hospital, or [place] [facility] facility...) When possible be specific @ -No Did you speak to anyone other than the patient for history (EMS, parent, family, police, friend...)? What history was obtained from this source @ -No Did you review nursing and triage notes (agree or disagree)? Why? @ -I reviewed and agree with nursing and triage notes Were old charts reviewed (outside hosp., previous admission, EMS record, old EKG, old radiological studies, urgent care reports/EKG's, [place] [facility] facility records)? Report findings @ -No old charts were reviewed Differential Diagnosis (chest pain, altered mental status, abdominal pain women, abdominal pain men, vaginal bleeding, musculoskeletal, weakness, fever, dyspnea, syncope, headache, dizziness, GI bleed, back pain, seizure, CVA, palpatations, mental health)? @ -Differential Chest Pain: Stable Angina, Unstable Angina, STEMI, NSTEMI Aortic Dissection, Pneumothorax, Musculoskeletal, Esophageal Spasm GERD, Cholecystitis, Pancreatitis, Zoster, this is not meant to be an all-inclusive list. EKG interpreted by me (3pts min.). @ -See above X-rays interpreted by me (1pt min.). @ -Chest x-ray is nonacute CT interpreted by me (1pt min.). @ -None done U/S interpreted by me (1pt. min.). @ -None done What testing was considered but not performed or refused? (CT, X-rays, U/S, labs)? Why? @ -None What meds were considered but not given or refused? Why? @ -None Did you discuss the management of the patient with other professionals (professionals i.e. , PA, SYSTEMS SUPPORT SPECIALIST, lab, RT, psych nurse, high school social science teacher, media production manager, teacher, trust officer, window caser)? Give summary @ -No Was smoking cessation discussed for >3mins.? @ -No Was critical care preformed (if so, how long)? @ -No Were there social determinants of health that impacted care today? How? (Homelessness, low income, unemployed, alcoholism, drug addiction, transportation, low edu. Level, literacy, decrease access to med. care, group home, re hab)? @ -No Was there de-escalation of care discussed even if they declined (Discuss DNR or withdrawal of care, Hospice)? DNR status @ -No What co-morbidities impacted this encounter? (DM, HTN, Smoking, COPD, CAD, Cancer, CVA, ARF, Chemo, Hep., AIDS, mental health diagnosis, sleep apnea, morbid obesity)? @ -None Was patient admitted / discharged? Hospital course, mention meds given and route, prescriptions, significant lab abnormalities, going to OR and other pertinent info. @ -58-year-old female with no significant comorbidities presents to the ER for atypical chest pain with typical features. Vital signs upon arrival are within acceptable limits. EKG is unremarkable. Laboratory evaluation obtained. CBC, metabolic panel is unremarkable. Troponin is negative. Chest x-ray is nonac [place]. Patient reevaluated bedside. Disposition options were discussed she is agreeable for discharge. Patient strongly advised to follow-up primary care doctor for outpatient stress test. Return precautions discussed. Undiagnosed new problem with uncertain prognosis? @ -No Drug Therapy requiring intensive monitoring for toxicity (Heparin, Nitro, Insulin, Cardizem)? @ -No Were any procedures done? @ -No Diagnosis/symptom? Acute, or Chronic, or Acute on Chronic? Uncomplicated (without systemic symptoms) or Complicated (systemic symptoms)? @ -Chest pain Side effects of treatment? @ -No Exacerbation, Progression, or Severe Exacerbation? @ -No Poses a threat to life or bodily function? How? (Chest pain, [place], [place], pneumonia, PE, COPD, DKA, ARF, appy, cholecystitis, CVA, Diverticulitis, Homicidal, Suicidal, threat to staff... and all critical care pts) @ -No - Lab Data Result diagrams: 02/01/24 10:05 02/01/24 10:05 Lab Results 02/01/24 02/01/24 02/01/24 Range/Units 10:05 10:05 10:05 WBC 5.1 (3.8-10.6) k/uL RBC 4.40 (3.80-5.40) m/uL Hgb 13.4 (11.4-16.0) gm/dL Hct 40.5 (34.0-46.0) % MCV 92.0 (80.0-100.0) fL MCH 30.5 (25.0-35.0) pg MCHC 33.1 (31.0-37.0) g/dL RDW 13.0 (11.5-15.5) % Plt Count 196 (150-450) k/uL MPV 7.2 Neutrophils % 68 % Lymphocytes % 23 % Monocytes % 6 % Eosinophils % 1 % Basophils % 1 % Neutrophils # 3.4 (1.3-7.7) k/uL Lymphocytes # 1.2 (1.0-4.8) k/uL Monocytes # 0.3 (0-1.0) k/uL Eosinophils # 0.1 (0-0.7) k/uL Basophils # 0.0 (0-0.2) k/uL PT 10.5 (10.0-12.5) sec INR 0.9 (<1.2) APTT 24.9 (22.0-30.0) sec Sodium 138 (137-145) mmol/L Potassium 4.0 (3.5-5.1) mmol/L Chloride 108 H (98-107) mmol/L Carbon Dioxide 23 (22-30) mmol/L Anion Gap 7 mmol/L BUN 19 H (7-17) mg/dL Creatinine 0.74 (0.52-1.04) mg/dL Est GFR (CKD-EPI)AfAm >90 (>60 ml/min/1.73 sqM) Est GFR (CKD-EPI)NonAf 89 (>60 ml/min/1.73 sqM) Glucose 102 H (74-99) mg/dL Calcium 9.3 (8.4-10.2) mg/dL Magnesium 2.0 (1.6-2.3) mg/dL Total Bilirubin 1.0 (0.2-1.3) mg/dL AST 45 H (14-36) U/L ALT 41 H (4-34) U/L Alkaline Phosphatase 79 (38-126) U/L Troponin I (0.000-0.034) ng/mL Total Protein 7.5 (6.3-8.2) g/dL Albumin 4.4 (3.5-5.0) g/dL 02/01/24 Range/Units 10:05 WBC (3.8-10.6) k/uL RBC (3.80-5.40) m/uL Hgb (11.4-16.0) gm/dL Hct (34.0-46.0) % MCV (80.0-100.0) fL MCH (25.0-35.0) pg MCHC (31.0-37.0) g/dL RDW (11.5-15.5) % Plt Count (150-450) k/uL MPV Neutrophils % % Lymphocytes % % Monocytes % % Eosinophils % % Basophils % % Neutrophils # (1.3-7.7) k/uL Lymphocytes # (1.0-4.8) k/uL Monocytes # (0-1.0) k/uL Eosinophils # (0-0.7) k/uL Basophils # (0-0.2) k/uL PT (10.0-12.5) sec INR (<1.2) APTT (22.0-30.0) sec Sodium (137-145) mmol/L Potassium (3.5-5.1) mmol/L Chloride (98-107) mmol/L Carbon Dioxide (22-30) mmol/L Anion Gap mmol/L BUN (7-17) mg/dL Creatinine (0.52-1.04) mg/dL Est GFR (CKD-EPI)AfAm (>60 ml/min/1.73 sqM) Est GFR (CKD-EPI)NonAf (>60 ml/min/1.73 sqM) Glucose (74-99) mg/dL Calcium (8.4-10.2) mg/dL Magnesium (1.6-2.3) mg/dL Total Bilirubin (0.2-1.3) mg/dL AST (14-36) U/L ALT (4-34) U/L Alkaline Phosphatase (38-126) U/L Troponin I <0.012 (0.000-0.034) ng/mL Total Protein (6.3-8.2) g/dL Albumin (3.5-5.0) g/dL Disposition Clinical Impression: Chest pain Disposition: HOME SELF-CARE Condition: Fair Instructions (If sedation given, give patient instructions): Chest Pain (ED) Is patient prescribed a controlled substance at d/c from ED?: No Referrals: Ino Jung MD [Primary Care Provider] - 1-2 days Time of Disposition: 11:58
[2024-02-01 10:22] VITALS: RESP 18
[2024-02-01 10:22] LABS: Basophils % (A) 1 %; Eosinophils # (A) 0.1 k/uL (0-0.7); Eosinophils % (A) 1 %; HCT 40.5 % (34.0-46.0); HGB 13.4 gm/dL (11.4-16.0); Lymphocytes # (A) 1.2 k/uL (1.0-4.8); Lymphocytes % (A) 23 %; MCH 30.5 pg (25.0-35.0); MCHC 33.1 g/dL (31.0-37.0); Mean Platelet Volume 7.2; Monocytes # (A) 0.3 k/uL (0-1.0); Monocytes % (A) 6 %; Neutrophils # (A) 3.4 k/uL (1.3-7.7); Neutrophils % (A) 68 %; Platelet Count 196 k/uL (150-450); WBC 5.1 k/uL (3.8-10.6)
[2024-02-01 10:32] LABS: ALT 41 U/L (4-34); AST 45 U/L (14-36); African American GFR (CKD) >90 (>60 ml/min/1.73 sqM); Albumin 4.4 g/dL (3.5-5.0); Alkaline Phosphatase 79 U/L (38-126); Anion Gap 7 mmol/L; Blood Urea Nitrogen 19 mg/dL (7-17); Calcium 9.3 mg/dL (8.4-10.2); Carbon Dioxide 23 mmol/L (22-30); Chloride 108 mmol/L (98-107); Glucose 102 mg/dL (74-99); Non-African American GFR(CKD) 89 (>60 ml/min/1.73 sqM); Sodium 138 mmol/L (137-145); Total Protein 7.5 g/dL (6.3-8.2)
[2024-02-01 10:37] LABS: INR 0.9 (<1.2); Partial Thromboplastin Time 24.9 sec (22.0-30.0); Prothrombin Time 10.5 sec (10.0-12.5)
--- NOTE | 2024-02-01 11:47 | XR ---
EXAMINATION TYPE: XR chest 2V DATE OF EXAM: 02/01/2024 10:31 AM CLINICAL INDICATION:Female, 58 years old with history of Chest Pain; COMPARISON: None TECHNIQUE: XR chest 2V Frontal and lateral views of the chest. FINDINGS: Lungs/Pleura: There is no evidence of pleural effusion, focal consolidation, or pneumothorax. Pulmonary vascularity: Unremarkable. Heart/mediastinum: Cardiomediastinal silhouette is unremarkable. Musculoskeletal: No acute osseous pathology. IMPRESSION: No acute cardiopulmonary disease/process.
[2024-02-01] MEDS: ASPIRIN 81 MG PO STA (12:28)
[2024-02-01 12:43] VITALS: BP 148/83; PULSE 48
== END 2024-02-01 12:40 | disposition home or self-care (01) ==
LOC: EC 09:28
DX: R07.89 Other chest pain (principal); R00.1 Bradycardia, unspecified; F17.200 Nicotine dependence, unspecified, uncomplicated
CPT/HCPCS: 36415; 71046; 80053; 83735; 84484; 85025; 85610; 85730; 93005; 99285

== ENCOUNTER 2024-02-13 14:30 | Emergency (ER) | payer MEDICAID ==
[~2024-02-13 14:30] MED LIST: EPINEPHrine 10 ML SYRINGE (0.1 MG/ML) ONE; SODIUM BICARB 8.4% 50 ML SYR (1 MEQ/ML) ONE
--- NOTE | 2024-02-13 14:57 | ED ---
General Adult HPI - General Chief complaint: Cardiac Arrest/CPR Stated complaint: chest pain/syncope Time Seen by Provider: 02/13/24 14:30 Source: EMS, RN notes reviewed, old records reviewed Mode of arrival: EMS - History of Present Illness Initial comments: This is a 59-year-old female who was feeling ill and when the ambulance arrived the police stated that the patient was complaining of chest pain and patient then collapsed and was having agonal breaths and was bradycardic when they got the patient into the ambulance she immediately was asystole and he started CPR. This was that 1345. Patient was given 8 epi's and route to the hospital also was given 2 g of magnesium sulfate because it appeared that the patient was in torsades patient was intubated and route. Patient had pulses return for about 5 minutes and approximately 10 minutes before the patient arrived to the hospital was asystole again. On arrival to the hospital patient was asystole. No further history is available at this time. - Related Data Home Medications Medication Instructions Recorded Confirmed Nebivolol HCl [Bystolic] 5 mg PO DAILY 08/18/20 02/01/24 Atorvastatin [Lipitor] 10 mg PO DAILY 04/26/22 02/01/24 Allergies Allergy/AdvReac Type Severity Reaction Status Date / Time No Known Allergies Allergy Verified 02/13/24 14:34 Review of Systems ROS Statement: Those systems with pertinent positive or pertinent negative responses have been documented in the HPI. ROS Other: All systems not noted in ROS Statement are negative. Past Medical History Past Medical History: Hyperlipidemia, Hypertension, Sleep Apnea/CPAP/BIPAP Additional Past Medical History / Comment(s): Varicose veins of the leg. 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 History of Any Multi-Drug Resistant Organisms: None Reported Additional Past Surgical History / Comment(s): wisdom teeth removal. Colonoscopy on 12/01/2015. Additional Past Anesthesia/Blood Transfusion Reaction / Comment(s): never has had general anesthesia Past Psychological History: Anxiety Smoking Status: Current some day smoker Past Alcohol Use History: Daily Past Drug Use History: None Reported - Past Family History Mother Family Medical History: Osteoarthritis (OA) Additional Family Medical History / Comment(s): Brain tumor. Father Family Medical History: GERD/Reflux Additional Family Medical History / Comment(s): hiatal hernia. Paternal grandmother had diabetes. General Exam - General Exam Comments Initial Comments: GENERAL: Patient is intubated and currently being bagged and CPR was being performed EYES: The sclera were anicteric and conjunctiva were pink and moist. Extraocular movements were intact and pupils were equal round and reactive to light. Eyelids were unremarkable. PULMONARY: Lung sounds bilaterally no sounds in the epigastrium CARDIOVASCULAR: No heart rate. Patient has no pulses NEUROLOGIC: GCS of 3. Patient is unresponsive MUSCULOSKELETAL: Patient has no spontaneous movement PSYCHIATRIC: Unable to assess Medical Decision Making - Medical Decision Making Was pt. sent in by a medical professional or institution (, PA, PAN HELPER, urgent care, hospital, or longterm...) When possible be specific @ -Police made the call to EMS to have the patient brought to the hospital Did you speak to anyone other than the patient for history (EMS, parent, family, police, friend...)? What history was obtained from this source @ -EMS gives all of the history Did you review nursing and triage notes (agree or disagree)? Why? @ -I reviewed and agree with nursing and triage notes Were old charts reviewed (outside hosp., previous admission, EMS record, old EKG, old radiological studies, urgent care reports/EKG's, longterm records)? Report findings @ -I reviewed the patient's prior ER chart and prior lab work from that visit. Differential Diagnosis (chest pain, altered mental status, abdominal pain women, abdominal pain men, vaginal bleeding, weakness, fever, dyspnea, syncope, headache, dizziness, GI bleed, back pain, seizure, CVA, palpatations, mental health, musculoskeletal)? @ -Differential Chest Pain: Stable Angina, Unstable Angina, STEMI, NSTEMI Aortic Dissection, Pneumothorax, Musculoskeletal, Esophageal Spasm GERD, Cholecystitis, Pancreatitis, Zoster, this is not meant to be an all-inclusive list. EKG interpreted by me (3pts min.). @ -As above X-rays interpreted by me (1pt min.). @ -None done CT interpreted by me (1pt min.). @ -None done U/S interpreted by me (1pt. min.). @ -None done What testing was considered but not performed or refused? (CT, X-rays, U/S, labs)? Why? @ -None What meds were considered but not given or refused? Why? @ -None Did you discuss the management of the patient with other professionals (professionals i.e. Dr., PA, PAN HELPER, lab, RT, psych nurse, social work instructor, chief of hospital medicine, teacher, animal park code enforcement officer, patient case manager)? Give summary @ -I spoke with the medical records director. Was smoking cessation discussed for >3mins.? @ -No Was critical care preformed (if so, how long)? @ -No Were there social determinants of health that impacted care today? How? (Homelessness, low income, unemployed, alcoholism, drug addiction, tr ansportation, low edu. Level, literacy, decrease access to med. care, prison, rehab)? @ -No Was there de-escalation of care discussed even if they declined (Discuss DNR or withdrawal of care, Hospice)? DNR status @ -No What co-morbidities impacted this encounter? (DM, HTN, Smoking, COPD, CAD, Cancer, CVA, ARF, Chemo, Hep., AIDS, mental health diagnosis, sleep apnea, morbid obesity)? @ -None Was patient admitted / discharged? Hospital course, mention meds given and route, prescriptions, significant lab abnormalities, going to OR and other pertinent info. @ -Patient came in in asystole with. Occasionally there was is a complex that was non-perfusing at any time. Patient remained without pulses throughout the stay patient was given for epinephrine in the emergency department and to sodium bicarb. Patient never had pulses. Patient was pronounced at 1442 Undiagnosed new problem with uncertain prognosis? @ -No Drug Therapy requiring intensive monitoring for toxicity (Heparin, Nitro, Insuli n, Cardizem)? @ -No Were any procedures done? @ -No Diagnosis/symptom? @ -Cardiopulmonary arrest Acute, or Chronic, or Acute on Chronic? @ -Acute Uncomplicated (without systemic symptoms) or Complicated (systemic symptoms)? @ -Complicated Side effects of treatment? @ -No Exacerbation, Progression, or Severe Exacerbation? @ -No Poses a threat to life or bodily function? How? (Chest pain, [place], [place], pneumonia, PE, COPD, DKA, ARF, appy, cholecystitis, CVA, Diverticulitis, Homicidal, Suicidal, threat to staff... and all critical care pts) @ -No Disposition Clinical Impression: Cardiopulmonary arrest Disposition: Referrals: Ino Jung MD [Primary Care Provider] - 1-2 days Time of Disposition: 14:56 Preliminary Cause of : Cardiopulmonary arrest
== END 2024-02-13 18:00 | disposition expired ==
LOC: EC 14:30
DX: I46.9 Cardiac arrest, cause unspecified (principal); F17.200 Nicotine dependence, unspecified, uncomplicated
CPT/HCPCS: 99285; J0171